=== PATIENT | male | born 1990 | race African-American/Black ===

== ENCOUNTER 2021-02-18 00:22 | Emergency (ER) | payer SELFPAY ==
[~2021-02-18] VITALS: Ht 182.9 cm; Wt 82.0 kg
[2021-02-18 00:39] VITALS: BP 118/53
[2021-02-18] MEDS ORDERED: IBUPROFEN 800MG TABLET PO ONE (00:45)
[2021-02-18] MEDS ORDERED: CYCLOBENZAPRINE 10MG TABLET PO ONE (00:45)
[2021-02-18] MEDS ORDERED: IBUP-2030 MT (01:55)
[2021-02-18] MEDS ORDERED: CYCL10TA7 MT (01:55)
== END 2021-02-18 02:31 | disposition home or self-care (01) ==
LOC: ER 00:22
DX: S39.012A Strain of muscle, fascia and tendon of lower back, initial encounter (principal); W50.2XXA Accidental twist by another person, initial encounter; Y93.89 Activity, other specified; Y92.89 Other specified places as the place of occurrence of the external cause; Y99.8 Other external cause status
CPT/HCPCS: 99283

== ENCOUNTER 2022-10-05 16:22 | Emergency (ER) | payer SELFPAY ==
[~2022-10-05] VITALS: Ht 182.9 cm; Wt 82.0 kg
[~2022-10-05 16:22] MED LIST: CYCL10TA21 MT; IBUP-2030 MT
[2022-10-05 16:51] VITALS: BP 125/81; PULSE 99; RESP 16; TEMP 98.7; O2SAT 100
[2022-10-06] MEDS ORDERED: OXYM30SP26 BOTHNSTRLS (09:53)
== END 2022-10-05 20:17 | disposition left against medical advice (07) ==
LOC: ER 16:22
DX: Z53.21 Procedure and treatment not carried out due to patient leaving prior to being seen by health care provider (principal)
CPT/HCPCS: 99281

== ENCOUNTER 2022-10-06 08:58 | Emergency (ER) | payer MEDICAID ==
[~2022-10-06] VITALS: Ht 180.3 cm; Wt 79.0 kg
[2022-10-06 09:07] VITALS: BP 129/85; PULSE 88; RESP 20; TEMP 98.3; O2SAT 99
[2022-10-06] MEDS ORDERED: OXYM30SP26 BOTHNSTRLS (09:53)
== END 2022-10-06 10:22 | disposition home or self-care (01) ==
LOC: ER 08:58
DX: R04.0 Epistaxis (principal); R09.81 Nasal congestion
CPT/HCPCS: 99282